=== PATIENT | female | born 1940 | race Caucasian/White ===

== ENCOUNTER 2018-05-14 22:04 | Inpatient (IN) | payer OTHER ==
[~2018-05-14] VITALS: Ht 162.6 cm; Wt 91.6 kg
[2018-05-14 22:10] VITALS: BP 139/70
[2018-05-14] MEDS ORDERED: GLUCOPHAGE1000 MG PO (22:17)
[2018-05-14] MEDS ORDERED: ZESTRIL10 MG PO (22:17)
[2018-05-14] MEDS ORDERED: ZOCOR20 MG PO (22:18)
[2018-05-14] MEDS ORDERED: ASPIR 8181 MG PO (22:18)
[2018-05-14] MEDS ORDERED: OMEPPI 20 MG-11 EACH PO (22:19)
[2018-05-14 22:50] LABS: ABSOLUTE EOSINOPHILS 0.1 thou/uL (0.0-0.7); ABSOLUTE MONOCYTES 0.5 thou/uL (0.0-1.2); ABSOLUTE NEUTROPHILS 5.5 thou/uL (1.6-8.1); BASOPHILS 0.4 %; EOSINOPHILS 0.8 %; HEMATOCRIT 36.7 % (37.0-47.0); HEMOGLOBIN 12.1 gm/dL (12.0-15.0); LYMPHOCYTES 24.4 %; MCH 29.3 pg (26.0-34.0); MCHC 33.1 g/dL (28.0-37.0); MCV 88.8 fL (80.0-100.0); MONOCYTES 6.2 %; MPV 8.9 fl. (7.2-11.1); NUCLEATED RBCS 0 /100WBC; PLATELET COUNT* 216 thou/uL (150-400); POLYS 68.2 %; RBC 4.13 mil/uL (4.20-5.00); RDW-CV 14.7 % (10.5-14.5); WBC 8.1 thou/uL (4.0-11.0)
[2018-05-14 22:57] LABS: ANION GAP 12 mmol/L (7-16); BUN 22 mg/dL (7-18); CALCIUM 8.7 mg/dL (8.5-10.1); CHLORIDE 103 mmol/L (98-107); CO2 23 mmol/L (21-32); CREATININE 1.1 mg/dL (0.6-1.3); GLUCOSE 243 mg/dL (70-99); SODIUM 138 mmol/L (136-145)
[2018-05-14 22:59] LABS: PROTIME 10.6 Seconds (9.20-11.50)
[2018-05-14 23:08] LABS: ALBUMIN 3.2 g/dL (3.4-5.0); ALKALINE PHOSPHATASE 66 U/L (46-116); LIPASE 120 U/L (73-393); NT-PRO BRAIN NAT PEPTIDE 165 pg/mL (<300); SGOT 24 U/L (15-37); SGPT 30 U/L (30-65); TOTAL BILIRUBIN 0.2 mg/dL (<0.1-1.0); TOTAL PROTEIN 7.1 g/dL (6.4-8.2); TROPONIN-I LEVEL <0.06 ng/mL (<0.06)
[2018-05-14 23:38] LABS: URINE BILIRUBIN NEGATIVE (Negative); URINE BLOOD NEGATIVE (Negative); URINE CLARITY CLEAR; URINE COLOR YELLOW; URINE GLUCOSE-RANDOM 1+ (Negative); URINE KETONES NEGATIVE (Negative); URINE LEUKOCYTES-REFLEX 1+ (Negative); URINE PROTEIN NEGATIVE (Negative); URINE SPECIFIC GRAVITY 1.025 (1.005-1.030); URINE UROBILINOGEN 0.2 E.U./dl (0.2-1.0)
[2018-05-14 23:41] LABS: URINE NITRITE-REFLEX POSITIVE (Negative)
[2018-05-15 00:27] LABS: CASTS None Seen /LPF (None Seen); SQUAMOUS 4-10 Moderate /LPF (0-3); URINE WBC-REFLEX 6-15 Few /HPF (0-5)
[2018-05-15 00:28] LABS: BACTERIA-REFLEX >30 Many /HPF (None Seen); CRYSTALS None Seen /LPF (None Seen); URINE RBC 0-2 Rare /HPF (0-2)
[2018-05-15 01:36] VITALS: BP 117/69
[2018-05-15 01:50] VITALS: BP 123/64
[2018-05-15 08:45] VITALS: BP 120/58
[2018-05-15 16:00] VITALS: BP 111/57
[2018-05-15 20:00] VITALS: BP 129/59
[2018-05-16] VITALS: BP 140/66
[2018-05-16 04:00] VITALS: BP 142/68
[2018-05-16 05:48] LABS: CHOLESTEROL 121 mg/dL (<200); HDL CHOLESTEROL 35 mg/dL (>40); LDL CHOLESTEROL 69 mg/dL (<100); TC:HDL 3.5 Ratio (Not establshd); TRIGLYCERIDE 88 mg/dL (<150); VLDL 18 mg/dL (<40)
[2018-05-16 05:56] LABS: SERUM ASSESSMENT Clear
[2018-05-16 08:04] VITALS: BP 138/73
--- NOTE | 2018-05-16 08:56 | CON ---
[address] [address] CONSULTATION Name: JALIL DEGROOT Room: [address] IN [facility].#: [id number] Admission: 05/15/18 Attend Phys: Fuentes Galdamez MD Discharge: Date of : 38 Report #: [id number] THIS REPORT FOR: //name// CC: Dr. aMximo Marsh INDICATION: Chest pain. HISTORY OF PRESENT ILLNESS: The patient is a 77-year-old white female who reports a 5-vessel coronary artery bypass grafting approximately 5 years ago. Prior to that, she had been having angina. She is not sure if she had actual heart attack at that time. She has remained relatively stable since that time. Yesterday evening, she developed pain in her back radiating to both shoulders. After this went on for several hours, her children convinced her to come to the hospital. She was admitted to the hospital for further evaluation. Initial troponins are less than 0.06 x 3. EKG shows sinus rhythm without acute ST or T-wave abnormality. Her chest pain has resolved. At the time of interview, she was stable and without complaint. PAST MEDICAL HISTORY: 1. Coronary artery bypass grafting. 2. Coronary artery disease. 3. Hypertension. 4. Type 2 diabetes mellitus. 5. Dyslipidemia. ALLERGIES: None documented. HOME MEDICATIONS: Metformin 1000 mg b.i.d., lisinopril, simvastatin 20 mg at bedtime, aspirin 81 mg daily, omeprazole 20 mg daily. ALLERGIES: None documented. FAMILY HISTORY: Noncontributory. SOCIAL HISTORY: The patient does not smoke. She drinks alcohol rarely. PHYSICAL EXAMINATION: VITAL SIGNS: Stable. Blood pressure 120/58, pulse 91 and regular. GENERAL: This is a pleasant lady in no distress. Mood and affect appropriate. HEENT: The patient is wearing glasses. Extraocular muscles intact. Mucous membranes are moist. NECK: Shows no jugular venous distention. There are no carotid bruits. CHEST: Reveals clear lung sainz without wheezes or rales. CARDIAC: Reveals a regular rhythm with normal S1 and S2. I do not appreciate [place] [address] CONSULTATION Name: JALIL DEGROOT Room: [address]#: [id number] Admission: 05/15/18 Attend Phys: Fuentes Galdamez MD Discharge: Date of : 39 Report #: [id number] ABDOMEN: Reveals normal bowel sounds. The abdomen is soft, nontender. EXTREMITIES: Show no edema. Peripheral pulses 2+ and easily palpable. SKIN: Warm and dry. LABORATORY DATA: A 12-lead EKG shows sinus rhythm without acute ST or T-wave abnormality. There are Q-waves inferiorly that appear old. Chest x-ray shows no acute cardiopulmonary abnormality. Labs are reviewed. Electrolytes within normal limits. BUN 22, creatinine 1.1, serum glucose 243. LFTs are within normal limits. Troponin less than 0.06 x 3. IMPRESSION AND RECOMMENDATIONS: 1. Chest pain in a patient with underlying coronary artery disease. We will proceed with noninvasive stress testing. Further intervention will be pending the results of that study. Continue medications outlined above. 2. Hypertension, adequately controlled on current cardiac regimen. 3. Dyslipidemia. Continue simvastatin at current dose. Would repeat fasting lipid profile at this time and make adjustments as needed. <ELECTRONICALLY SIGNED> By: Gamal Noble MD, FACC 05/16/18 0856 1241 [id number] Noble MD, FACC /nt
--- NOTE | 2018-05-16 11:21 | EKG ---
[place] [address] ELECTROCARDIOGRAM REPORT Name: JALIL DEGROOT Room: [address] ADM IN [facility]#: [id number] Admission: 05/15/18 Attend Phys: Fuentes Galdamez MD Discharge: Date of : 39 Report #: [id number] THIS REPORT FOR: //name// [facility] ED Test Date: 2018-05-14 Test Time: 22:13:31 Pat Name: JALIL DEGROOT Department: Room: [facility] Gender: F Seed Service Advisor: SANDEEP : 1940 Requested By: Geetha Coles Order Number: [id number] MD: Oscar Selby Measurements Intervals Evans Rate: 99 P: 64 PA: 160 QRS: 6 QRSD: 74 T: 19 QT: 397 QTc: 510 Interpretive Statements Sinus rhythm Atrial premature complexes Low voltage, precordial leads RSR' in V1 or V2, probably normal variant Consider inferior infarct Prolonged QT interval Compared to ECG 10/13/2008 09:27:01 Atrial premature complex(es) now present Prolonged QT interval now present Electronically Signed On 05-16-2018 11:20:52 [employer]ITTER HEL[employer] by Oscar Selby [email or web address] <ELECTRONICALLY SIGNED> By: Oscar Selby MD, FACC 05/16/18 1120 12 12 Oscar Selby MD, FACC /EPI
[2018-05-16 12:20] VITALS: BP 132/69
[2018-05-16] MEDS ORDERED: KEFLEX250 MG PO (14:27)
[2018-05-16 14:28] VITALS: BP 132/69
--- NOTE | 2018-05-17 18:43 | CARDNUC ---
[place] [address] CARDIAC NUCLEAR IMAGING REPORT Name: JALIL DEGROOT Room: [address] IN [facility]#: [id number] Admission: 05/15/18 Attend Phys: Fuentes Galdamez, Discharge: 05/16/18 Date of : 38 Date of Service: 05/17/18 1843 Report #: [id number] THIS REPORT FOR: //name// APPROVED REPORT Imaging Protocol: Rest Tc-99m/Stress Tc-99m 2 days Study performed: 05/15/2018 12:42:00 KARINA Tech:NANCY Neff BMI: 0 Resting Data Rest SPECT myocardial perfusion imaging was performed in supine position 30 minutes following the intravenous injection of 36.9 mCi of Tc-99m Sestamibi. Time of rest injection: 1125 Date: 05/16/2018 Time of rest imagin The images were gated to evaluate regional wall motion and calculate left ventricular ejection fraction. Administration Route: IV Stress Test Details HR Max Heart Rate (APMHR): 142 bpm Target HR (85% APMHR): 120 bpm BP ECG Resting ECG: Sinus Rhythm Study Quality Study: incomplete Study Data At rest, the left ventricular ejection fraction was 79%.. Resting images show uniform uptake of the radioisotope throughout the myocardium. Wall Motion Normal left ventricular wall motion. Nuclear Conclusion The patient had resting images performed. This shows normal LV systolic function on gated studies. [place] [address] CARDIAC NUCLEAR IMAGING REPORT Name: JALIL DEGROOT Room: [address]#: [id number] Admission: 05/15/18 Attend Phys: Fuentes Galdamez, Discharge: 05/16/18 Date of : 38 Date of Service: 05/17/181842 Report #: [id number] radioisotope throughout the myocardium. Stress images were not obtained. <ELECTRONICALLY SIGNED> By: Gamal Noble MD, FACC 05/17/181842 42 42 Gamal Noble MD, FACC /INF
== END 2018-05-16 14:58 | disposition home or self-care (01) | DRG 690 ==
LOC: M.ERS 22:04 → M.TBA-ER 05-15 01:16 → M.2W 05-15 01:43
PROVIDERS: Emergency Medicine; Internal Medicine Cardiovascular Disease
DX: N39.0 Urinary tract infection, site not specified (principal); I24.8 Other forms of acute ischemic heart disease; E11.65 Type 2 diabetes mellitus with hyperglycemia; I25.10 Atherosclerotic heart disease of native coronary artery without angina pectoris; I10 Essential (primary) hypertension; K21.9 Gastro-esophageal reflux disease without esophagitis; E78.00 Pure hypercholesterolemia, unspecified; E78.5 Hyperlipidemia, unspecified; E66.9 Obesity, unspecified; Z68.34 Body mass index [BMI] 34.0-34.9, adult; Z95.1 Presence of aortocoronary bypass graft; Z79.82 Long term (current) use of aspirin; Z79.84 Long term (current) use of oral hypoglycemic drugs; Z79.899 Other long term (current) drug therapy

== ENCOUNTER → 2018-05-29 | Outpatient (CLI) | payer OTHER ==
[~2018-05-29] MED LIST: ASPIR 8181 MG PO; GLUCOPHAGE1000 MG PO; KEFLEX250 MG PO; OMEPPI 20 MG-11 EACH PO; OMEPRAZOLE20 MG PO; ZESTRIL10 MG PO; ZOCOR20 MG PO
--- NOTE | ~2018-05-29 | PAINCON ---
[address] [address] PAIN MANAGEMENT CONSULTATION Name: JALIL DEGROOT Room: [facility] LISA CoombsArun#: [id number] Admission: 05/29/18 Attend Phys: Danielle Soto MD Discharge: Date of : 39 Report #: [id number] THIS REPORT FOR: //name// CC: Anil Soto DATE OF SERVICE: 05/29/2018 CHIEF COMPLAINT: Calves, knee and foot pain. FOLLOWUP HISTORY: The patient is a 77-year-old female who has been experiencing pain and discomfort in her right knee and leg. She has a history of peripheral vascular disease. She has had right fem-popliteal artery bypass. She continues to have some pain and discomfort. The patient's surgeon feels that the circulation has improved in the leg, he does not feel that the pain secondary to ischemia at this juncture. She has had injections in her right knee. She did note some improvement with that. She was told that she has ksrc-jy-ekpb pain. Also, has left knee pain. Pain in the left leg, radiates down into the left leg into the toes, with tingling "going down." She has used hydrocodone on very rare occasions. Had a pill, left from a script over 1 year ago. Notes that the pain is exacerbated with walking and standing, improves somewhat with rest. Describes as continuous, cramping and rates it as a 6/10. ALLERGIES: No known drug allergies. MEDICATIONS: Aspirin 81 mg chewable, lisinopril 10 mg, metformin 1000 mg b.i.d., omeprazole 20 mg, Zocor 20 mg. PAST MEDICAL HISTORY: Hypertension, GERD, elevated LDL cholesterol, diabetes, non-insulin dependent, vitiligo, heart attack 2009. PAST SURGICAL HISTORY: Right leg fem-popliteal 2017, 1960, appendectomy in 2011, open heart surgery, 2016, cholecystectomy, open heart surgery in 2010, hernia repair in 2017. SOCIAL HISTORY: She has been retired for 17 years. REVIEW OF SYSTEMS: Generally good health, wears glasses, heart trouble, frequent diarrhea, frequent urination. MUSCULOSKELETAL: Joint pain, joint stiffness, joint weakness, muscle pain, back pain, difficulty walking, depression. OCCUPATION: manager internet. LABORATORY DATA: No new laboratory values were available [place] [address] PAIN MANAGEMENT CONSULTATION Name: JALIL DEGROOT Damian Room: [facility]#: [id number] Admission: 05/29/18 Attend Phys: Danielle Soto MD Discharge: Date of : 39 Report #: [id number] PAIN CLINIC ASSESSMENT/PQRS: 1. History of osteoarthritis. The patient does have some arthritic changes. She is not being treated for rheumatoid arthritis. 2. Height 5 feet 4 inches, weight 220 pounds, BMI is 34.5. 3. Vital signs: Blood pressure 151/75, heart rate 88, respiratory rate 16, room air saturation 95%. Temperature 97.8. 4. Pain intensity 6/10 with activity, zero while sitting. 5. Fall risk. The patient has not fallen in the last 3 months. 6. Blood thinner. The patient is not on a blood thinning medication. 7. Hypertension. The patient is being treated for hypertension. 8. Opioids greater than 6 weeks. The patient is not on her opioid regimen. 9. Risk assessment tool, low for opioid use. 10. Functional assessment tool. 11. Recreational drug use. The patient denies use of recreational drugs. 12. Tobacco: The patient denies use of tobacco. 13. Alcohol: The patient denies use of alcoholic beverages. PHYSICAL EXAMINATION: GENERAL: The patient is a well-developed, well-nourished white female. Appears her stated age. She is alert and oriented x 3. Affect is appropriate. Speech is fluent. HEENT: Normocephalic, atraumatic. Extraocular eye muscles intact. Sclerae nonicteric. The patient wears glasses. Mucous membranes are moist. NECK: Without bruits. HEART: S1, S2. LUNGS: Clear to auscultation. EXTREMITIES: Upper extremity muscle strength is judged to be 4+/5 for the major muscle groups in the upper extremity. The patient is without significant scoliosis, kyphosis or lordosis. Does state that she has an extra vertebrae in her low back area. Sometimes ____ and causes worsening of her pain. Lower extremity muscle strength is judged to be 5-/5 for the major muscle groups. The patient has been walking with a limp. Sometime uses her 's walker. Finds that walking, using escort can be helpful. The patient complains of knee pain bilaterally, left more problematic than right. States that she does have wjyu-kq-hfdj pain involving her knees. Notes some pain and discomfort with numbness and tingling down in her toes on the left side. The patient is experiencing pain radiating down in the L4-L5 dermatomal distribution and some down the L5-S1 area. IMPRESSION: 1. Lumbar radicular pain in the low back area on the left. 2. Multinodular goiter. 3. Diabetes type 2, causing vascular disease. 4. Essential hypertension. 5. Dyslipidemia. [address] [place] [address] PAIN MANAGEMENT CONSULTATION Name: JALIL DEGROOT Damian Room: [facility] CorinTonyMaggie.#: [id number] Admission: 05/29/18 Attend Phys: Danielle Soto MD Discharge: Date of : 39 Report #: [id number] 6. Coronary artery disease, status post myocardial infarct, 2009. 7. Vitiligo. 8. Arthritis. 9. Peripheral vascular disease. RECOMMENDATIONS: We discussed treatment options with the patient. Risks and benefits of an epidural steroid injection were discussed. The patient is having pain and discomfort radiating down her leg, which seems to be of a lumbar radicular nature. Risk and benefits of an epidural steroid injection were discussed. The patient will return to the Pain Clinic, at which time, she will then undergo an epidural steroid injection to help alleviate pain and discomfort, which she is experiencing with cramping, numbness and discomfort down into her calf and feet. We would like to thank you for letting us participate in her care. We hope she continues to improve. By: 1621 0240N. Marciano Soto MD /nt
== END ==
LOC: M.PC 09:40
DX: M54.16 Radiculopathy, lumbar region (principal); E11.9 Type 2 diabetes mellitus without complications; I10 Essential (primary) hypertension; E78.5 Hyperlipidemia, unspecified; E04.2 Nontoxic multinodular goiter; I25.10 Atherosclerotic heart disease of native coronary artery without angina pectoris; M19.90 Unspecified osteoarthritis, unspecified site; I73.9 Peripheral vascular disease, unspecified; L80 Vitiligo

== ENCOUNTER → 2018-08-09 | Outpatient (CLI) | payer OTHER ==
--- NOTE | ~2018-08-09 | PAINCON ---
[address] [address] PAIN MANAGEMENT CONSULTATION Name: JALIL DEGROOT Room: [facility] RichieTony#: [id number] Admission: 08/09/18 Attend Phys: Danielle Soto MD Discharge: Date of : 39 Report #: [id number] THIS REPORT FOR: //name// CC: Anil Knott DATE OF SERVICE: 08/09/2018 CHIEF COMPLAINT: Pain in the back and legs. HISTORY: The patient is a 77-year-old female who has been seen in the Pain Clinic because of pain radiating down into her right leg. She has undergone epidural steroid injection in the past and gleaned benefit from this. She has some pain in her right knee radiating down into her leg. Also has a history of peripheral neuropathy and has undergone right femoral popliteal bypass. She has had injections in her right knee. Does have qmme-qk-kaab pathology in that knee. She is having pain that radiates down into her leg with numbness, tingling and sensory changes in the right leg. Does have some upper arm discomfort as well. Today, she is concentrating on the lower extremity and would like an injection. ALLERGIES: No known drug allergies. MEDICATIONS: Aspirin 81 mg, lisinopril 10 mg, metformin 1000 mg b.i.d., omeprazole 20 mg and Zocor 20 mg. PAIN CLINIC ASSESSMENT/PQRS: 1. History of osteoarthritis. The patient does have arthritic changes and wjov-fl-batv pain involving her knee. She is not being treated for rheumatoid arthritis. 2. Height 5 feet 4 inches, weight 195 pounds, BMI is 33.6. 3. Vital signs: Blood pressure 141/79, heart rate 84, respiratory rate 16, room air saturation 91%, temperature 97.9. 4. Pain intensity 3-4/10. 5. Fall history: The patient has not fallen in the last 3 months. 6. Blood thinner. The patient is not on a blood thinning medication. 7. Hypertension. The patient is being treated for hypertension. 8. Opioids greater than 6 weeks. The patient is not on an opioid medication on a regular basis, but rarely uses hydrocodone. 9. Functional assessment tool. 10. Recreational drug use. The patient denies use of recreational drugs. 11. Tobacco: The patient denies use of tobacco. 12. Alcohol: The patient denies use of alcoholic beverages on a regular basis. PHYSICAL EXAMINATION: [place] [address] PAIN MANAGEMENT CONSULTATION Name: JALIL DEGROOT Room: [facility]#: [id number] Admission: 08/09/18 Attend Phys: Danielle Soto MD Discharge: Date of : 39 Report #: [id number] GENERAL: The patient is a well-developed, well-nourished white female appears her stated age. She is alert and oriented x 3. Affect is appropriate. Speech is fluent. HEENT: Normocephalic, atraumatic. Extraocular eye muscles intact. Sclerae nonicteric. Mucous membranes are moist. The patient wears glasses. HEART: Regular rate. S1, S2. LUNGS: Clear to auscultation. EXTREMITIES: Upper extremity muscle strength is judged to be 4+/5 for the major muscle groups. The patient does have some complaints of pain in her upper arms. Has pain in the right leg with pain down into the knee, calf and involving her foot. Both great toes are numb. The patient is without significant scoliosis, kyphosis or lordosis. The patient states she has been told she has an extra vertebrae in her low back area. The patient does walk with somewhat of a limp. Has used her 's walker for stability. Pain involves the L4-L5 dermatomal distribution on the right. IMPRESSION: 1. Right leg pain with pain radiating down into the L4-L5 dermatomal distribution. 2. Multinodular goiter. 3. Diabetes type 2 with vascular disease. 4. Essential hypertension. 5. Dyslipidemia. 6. Coronary artery disease, status post myocardial infarct, 2009. 7. Vitiligo. 8. Arthritis. 9. Peripheral vascular disease. RECOMMENDATIONS: We discussed treatment options with the patient. At this juncture, we will proceed with an epidural steroid injection. Risks and benefits of the procedure were discussed. Possibility of an infection, worsening pain, no improvement in pain and nerve damage with a spinal headache were discussed and the patient elects to proceed. PROCEDURE NOTE: The patient was taken to the procedure area. She was assisted in getting on examination table. A pillow was placed under the abdomen to bolster and improve positioning. Fluoroscopy used in anterior, posterior as well as lateral viewing were implemented. At the L4 interspace, using a right paracentral approach, a 0.25% bupivacaine was infiltrated using a 25-gauge needle. After this area had been numbed, a 17-gauge Tuohy with loss of resistance technique was used to gain access at the L4-L5 area using a right paracentral approach. A total of 80 mg Depo-Medrol, 40 mg triamcinolone and 2 mL of 0.25% bupivacaine was injected. The patient tolerated the procedure well. A total of 20 seconds fluoroscopy time was used. The patient's pain decreased to 0 at the time of discharge. She will follow [place] [address] PAIN MANAGEMENT CONSULTATION Name: DEGROOTJALIL Room: [facility]#: [id number] Admission: 08/09/18 Attend Phys: Danielle Soto MD Discharge: Date of : 39 Report #: [id number] I would like to thank you for letting us participate in her care. We hope she continues to improve. By: 1344 0230N. Marciano Soto MD /aydee
== END | disposition home or self-care (01) ==
LOC: M.PC 09:05
DX: M54.16 Radiculopathy, lumbar region (principal); G89.29 Other chronic pain; E04.2 Nontoxic multinodular goiter; I10 Essential (primary) hypertension; E11.51 Type 2 diabetes mellitus with diabetic peripheral angiopathy without gangrene; E78.5 Hyperlipidemia, unspecified; I25.10 Atherosclerotic heart disease of native coronary artery without angina pectoris; I25.2 Old myocardial infarction; M19.90 Unspecified osteoarthritis, unspecified site; I73.9 Peripheral vascular disease, unspecified; L80 Vitiligo; Z98.890 Other specified postprocedural states; Z79.899 Other long term (current) drug therapy

== ENCOUNTER → 2018-11-27 | Outpatient (CLI) | payer OTHER ==
[~2018-11-27] MED LIST changes: +GABAPENTIN100 MG PO
--- NOTE | ~2018-11-27 | PAINCON ---
[address] [address] PAIN MANAGEMENT CONSULTATION Name: JALIL DEGROOT Room: [facility] CorinArun#: [id number] Admission: 11/27/18 Attend Phys: Danielle Soto MD Discharge: Date of : 39 Report #: [id number] THIS REPORT FOR: //name// CC: Anil Soto DATE OF SERVICE: 11/27/2018 CHIEF COMPLAINT: "Continued pain from my knees down into the calf and into my feet." HISTORY: The patient is a 78-year-old female who has been seen in the pain clinic in the past because of lumbar radicular pain. She has undergone epidural steroid injection. She still finds that her pain continues to be problematic. She has had sciatica in the past. She does not feel that this is similar to that. Her pain starts at the level of her knee and then progresses down into her legs into the medial portion of her ankles bilaterally. She notes that her big toes are numb. She has undergone an injection in her knee in the past. This was quite some time ago. At that time, it was felt that she has arthritic problems. There was jtlj-zy-hlvk. She did note some period of time where her pain improved. She has had peripheral vascular disease. She has undergone "____" in her left leg to improve the blood flow. States that she was told by her surgeon that the blood flow in her legs has improved. She has had a right femoral popliteal graft in the past. She does have quite a bit of tightness in her calf. She states that this has been there for a number of years. She does have diabetes. Last A1c that she can remember was in the 7's. ALLERGIES: No known drug allergies. CURRENT MEDICATIONS: Aspirin 81 mg, lisinopril 10 mg, metformin 1000 mg b.i.d., omeprazole 20 mg, Zocor 20 mg, and Plavix. The patient is using Plavix. PAIN CLINIC ASSESSMENT/PQRS: 1. History of osteoarthritis. The patient has some osteoarthritic changes involving her knees. States that she has rcgk-rq-jegx pain involving her knees. She has not been treated for rheumatoid arthritis. 3. Height 5 feet 4 inches, weight 198 pounds, BMI is 34.5. 4. VITAL SIGNS: Blood pressure 135/70, heart rate 93, respiratory rate 20, room air saturation 95%, temperature is 98.5. Pain is 10/10. 5. Fall history: The patient has not fallen in the last 3 months. 6. Blood thinner. The patient is on Plavix. 7. Hypertension. The patient is being treated for hypertension. 8. Opioid greater than 6 weeks. The patient is using hydrocodone to help control the pain. 9. Functional assessment tool. 10. Recreational drug use. The patient [place] [address] PAIN MANAGEMENT CONSULTATION Name: JALIL DEGROOT Room: [facility]#: [id number] Admission: 11/27/18 Attend Phys: Danielle Soto MD Discharge: Date of : 39 Report #: [id number] 11. Tobacco: The patient denies use of tobacco. 12. Alcohol: The patient denies use of alcoholic beverages on a regular basis. PHYSICAL EXAMINATION: GENERAL: The patient is a well-developed, well-nourished, somewhat obese white female. Appears her stated age. She is alert and oriented x 3. Her affect is appropriate. Speech is fluent. HEENT: Normocephalic, atraumatic. Extraocular eye muscles intact. Sclerae nonicteric. Mucous membranes are moist. The patient is wearing glasses. HEART: Regular rate. S1, S2. LUNGS: Clear to auscultation. EXTREMITIES: Upper extremity muscle strength judged to be 4+/5 for the major muscle groups in the upper extremity. The patient is without significant scoliosis, kyphosis or lordosis. The patient walks with an antalgic gait. Use her hands to push on the chair to go from a sitting to a standing position. Has significant tightness in the lower extremities. Has almost a shiny appearance to her skin. She has good capillary refill about 1 second in the left and right toes. Dorsum of her feet and bottom of her feet are warm. She complains of pain in the knee area deep down into the knee area, which seems to be with movement, vrgf-mn-ytgw discomfort, has pain which radiates down into the mid portion of her legs on the internal portion and down into her feet. IMPRESSION: 1. Chronic pain in lower extremities. 2. History of vascular insufficiency, status post surgery with improved blood flow. 3. Multinodular goiter. 4. Diabetes type 2. 5. Essential hypertension. 6. Dyslipidemia. 7. Coronary artery disease, status post myocardial infarct 2009. 8. Vitiligo. 9. Arthritis. 10. Peripheral vascular disease. RECOMMENDATIONS: We discussed treatment options with the patient. At this juncture, does not appear that her pain is strictly follows a dermatomal distribution. She states that she has had sciatica. This pain is not similar to that which she has experienced. Pain involves her knees as though she had had boots on and goes straight down from her knees down into her feet. Notes that her big toes are numb. The patient has good capillary refill in the lower extremities. It appears that she may have a neuropathy of some sort. She also has cxxa-qu-gfwq pain, which is most problematic, most probably the reason, for her knee pain. We will have her try Neurontin. We discussed the use of Neurontin and why we would use it in her situation. We will start her out on a low level of 100 mg 3 times a day. We [place] [address] PAIN MANAGEMENT CONSULTATION Name: JALIL DEGROOT Room: [facility].#: [id number] Admission: 11/27/18 Attend Phys: Danielle Soto MD Discharge: Date of : 39 Report #: [id number] patients do not find a note improvement until they reach 1800 mg. She will call us in 1 week and tell us how things are going. We would like to thank you for letting us participate in her care. We hope she continues to improve. By: [id number] 0516N. Marciano Soto MD /nt
== END ==
LOC: M.PC 05:17
DX: M19.90 Unspecified osteoarthritis, unspecified site (principal); G89.29 Other chronic pain; E11.9 Type 2 diabetes mellitus without complications; E04.2 Nontoxic multinodular goiter; I10 Essential (primary) hypertension; E78.5 Hyperlipidemia, unspecified; I25.10 Atherosclerotic heart disease of native coronary artery without angina pectoris; I73.9 Peripheral vascular disease, unspecified; L80 Vitiligo; Z86.79 Personal history of other diseases of the circulatory system